=== PATIENT | female | born 1975 | race Two or more races ===

== ENCOUNTER 2022-03-17 11:15 | Emergency (ER) | payer OTHER ==
[~2022-03-17] VITALS: Ht 162.6 cm; Wt 109.8 kg
== END 2022-03-17 12:56 | disposition home or self-care (01) ==
LOC: ER 11:15
DX: D23.4 Other benign neoplasm of skin of scalp and neck (principal); B95.61 Methicillin susceptible Staphylococcus aureus infection as the cause of diseases classified elsewhere; Z16.24 Resistance to multiple antibiotics

== ENCOUNTER 2022-04-20 06:35 | Emergency (ER) | payer OTHER ==
[~2022-04-20] VITALS: Ht 170.2 cm; Wt 114.3 kg
== END 2022-04-20 12:39 | disposition home or self-care (01) ==
LOC: ER 06:35
DX: T78.40XA Allergy, unspecified, initial encounter (principal); X58.XXXA Exposure to other specified factors, initial encounter; Y92.9 Unspecified place or not applicable

== ENCOUNTER 2022-05-21 12:02 | Emergency (ER) | payer OTHER ==
[~2022-05-21] VITALS: Ht 167.6 cm; Wt 114.3 kg
== END 2022-05-21 16:14 | disposition home or self-care (01) ==
LOC: ER 12:02
DX: L03.116 Cellulitis of left lower limb (principal)

== ENCOUNTER 2023-10-01 03:02 | Emergency (ER) | payer OTHER ==
[~2023-10-01] VITALS: Ht 165.1 cm; Wt 113.4 kg
[2023-10-01] MEDS ORDERED: BENADRYL25 MG PO (08:30)
[2023-10-01] MEDS ORDERED: MEDROL8 MG PO (08:30)
[2023-10-01] MEDS ORDERED: PEPCID40 MG PO (08:30)
== END 2023-10-01 09:52 ==
LOC: ER 03:02
DX: T78.40XA Allergy, unspecified, initial encounter (principal)

== ENCOUNTER 2023-10-15 14:22 | Emergency (ER) | payer OTHER ==
[~2023-10-15] VITALS: Ht 167.6 cm; Wt 90.7 kg
[~2023-10-15 14:22] MED LIST: BENADRYL25 MG PO; MEDROL8 MG PO; PEPCID40 MG PO
== END 2023-10-15 17:40 | disposition home or self-care (01) ==
LOC: ER 14:23
DX: L73.9 Follicular disorder, unspecified (principal)

== ENCOUNTER 2025-06-10 14:02 | Emergency (ER) | payer OTHER ==
[~2025-06-10] VITALS: Ht 165.1 cm; Wt 114.3 kg
[2025-06-10 14:42] VITALS: BP 137/79; O2SAT 98
[2025-06-10] MEDS ORDERED: FAMOTIDINE/PF 20 MG/2 ML VIAL ONE (16:27)
[2025-06-10] MEDS ORDERED: PIPERACILLIN/TAZOBACTAM SODIUM 3.375 GM VIAL IV ONE ×2 (16:27→16:30)
[2025-06-10] MEDS ORDERED: 0.9 % SODIUM CHLORIDE 1,000 ML IV ONE (16:30)
[2025-06-10] MEDS ORDERED: FAMOtidine 10 MG/ML (4ML VIAL) IV ONE (16:30)
[2025-06-10 16:53] LABS: BASO % 0.7 % (0.1-1.2); EOS # 0.11 (0.04-0.54); EOS % 1.3 % (0.7-7.0); LYMPH # 2.21 (1.18-3.74); LYMPH % 27.1 % (19.3-53.1); MEAN PLATELET VOLUME 9.30 fl (9.4-12.4); MONO # 1.17 (0.24-0.82); NEUT # 4.58 (1.56-6.13); NEUT % 56.3 % (34.0-71.1); RED CELL DISTRIBUTION WIDTH 15.9 % (11.6-14.4)
[2025-06-10 16:56] LABS: MONO % 14.4 % (4.7-12.5)
[2025-06-10 16:58] LABS: ERYTHROCYTE SEDIMENTATION RATE 78 mm/hr (0-20)
[2025-06-10 17:15] LABS: INR 1.07
[2025-06-10 17:39] LABS: ALT/SGPT 26 U/L (12-78); AST/SGOT 15 U/L (15-37); BILIRUBIN TOTAL 0.15 mg/dL (0.3-1.2); BUN CREA RATIO 13 (7.0-25.0); CREATININE SERUM 0.54 mg/dL (0.55-1.02); GFR 120.50; GLOBULINA 5.4 G/DL (2.4-3.5); GLUCOSE FASTING 98 mg/dL (65-100); OSMOLALITY SERUM 275 MOSM/KG (275-295)
[2025-06-10 17:44] LABS: HCG QUANTITATIVE < 1 mUI/mL (1-3)
[2025-06-10 19:00] LABS: URINE APPEARANCE Clear; URINE BILIRRUBIN Negative (NEGATIVE); URINE BLOOD Negative; URINE COLOR Yellow; URINE GLUCOSE Negative (NEGATIVE); URINE LEUKOCYTE Negative; URINE NITRATE Negative; URINE PROTEIN Trace (NEGATIVE); URINE UROBILINOGEN 1.0 E.U./dl
[2025-06-10 19:07] LABS: URINE BACTERIA 521.9 uL (0.0-1933); URINE EPITHELIAL CELLS 21.5 uL (0.0-38.8); URINE RBC 64.9 uL (0.0-20.8); URINE WBC 9.6 uL (0.0-23.2)
[2025-06-10 19:10] LABS: URINE CAST 0.58 uL (0.0-1.40); URINE KETONE 40 (NEGATIVE)
[2025-06-10] MEDS ORDERED: PEPCID AC20 MG PO (19:24)
[2025-06-10] MEDS ORDERED: CEFUROXIME500 MG PO (19:24)
== END 2025-06-10 19:47 | disposition home or self-care (01) ==
LOC: ER 14:02
PROVIDERS: General Practice
DX: L03.311 Cellulitis of abdominal wall (principal)